=== PATIENT | female | born 1945 | race African-American/Black ===

== ENCOUNTER 2018-09-03 18:04 | Inpatient (IN) | payer MEDICARE, OTHER ==
--- NOTE | 2018-09-03 18:22 | PDOC ---
History of Present Illness - General Stated Complaint: WEAKNESS Time Seen by Provider: 09/03/18 18:21 History Source: Patient Exam Limitations: No Limitations - History of Present Illness Initial Comments: Zarina Rasmussen is a 73 yo F with a pmh of HTN, HLD, GERD, and bladder problems who presents to the ER BIBEMS with 3 days of left leg weakness. Patient states she has been shifting and walking to the left for the past 3 days as well. She also endorses occasional left shoulder weakness but nearly all of her symptoms are in her leg. What prompted her to come to the ER is that when she was driving today she states everyone was honking at her bc she was drifting over to the left. She then went to her doctor at [address] [place] [address] who sent her into the ER to be evaluated. She states she didn't understand why her leg has been weak so she incidentally checked her sugar at home yesterday and found that it was elevated at 200. She denies having a hx of diabetes. Patient denies having experienced any pain, numbness, tingling, chills, headache , neck pain, blurry vision, hx of strokes, dysuria, frequency, urgency, chest pain, SOB, difficulty breathing, abdominal pain, slurring her words, n/v/d/c. PCP: Michelle Valdes PSH: None reported Allergies: Amlodipine, benzapril Social Hx: Denies smoking, drinking, or other substance usage. tPA Exclusion checklist 3-4.5h - Time Elapsed Date last known well: 09/01/18 Time last known well: 09:00 Elaspsed time: 2 Day(s) and 11 Hour(s) and 49 Minutes - Thrombolytic Therapy Candidate Is patient eligible for thrombolytic therapy: No - Exclusion Criteria 3-4.5 hr SBP greater than 185 or DBP greater than 110mmHg despite tx: No Recent IC/spinal surgery,head trauma or stroke<3mos.: No Hx IC hemorrhage, IC neoplasm, AV malformation or aneurysm: No Active internal bleeding: No Blding diathesis(low plt ct, inc PTT,INR>1.7 or use of NOAC): No Symptoms suggest subarachnoid hemorrhage: No CT demonstrates multilobar infarct(>1/3 cerebral hemiphere): No Arterial puncture at noncompressible site in previous 7 days: No Blood glucose concentration less than 50mg/dL (2.7mmol/L): No - Relative Exclusion Criteria 3-4.5 hr Life expectancy <1 yr or severe co-morbid illness: No : No Patient/family refused: No Rapid improvement: No Stroke severity too mild: Yes Recent acute [place] (w/in previous 3 months): No Seizure at onset with postictal residual neuro impairments: No Major surgery or serious trauma w/in previous 14 days: No Recent GI or hemorrhage (w/in previous 21 days): No - Add'l Relative Exclusion 3-4.5 hr Age > 80: No Hx of both diabetes AND prior ischemic stroke: No Taking an oral anticoagulant regardless of INR: No NIHSS >25: No - Ineligibility reason(s) Reasons No tPA given: Outside of window - delayed arrival NIH Stroke Scale - Last Known Well Date/Time & Onset Date Last Known Well: 09/01/18 Time Last Known Well: 09:00 - Initial Evaluation Level of consciousness: Alert Ask patient the month and their age: Answers both correctly Ask patient to open & close eyes; make fist and let go: Obeys both correctly Best gaze (horizontal eye movement): Normal Visual field testing: No visual field loss Facial paresis (Show teeth/raise eyebrows/close eyes tight): Normal symmetrical movement Motor Function: Left Arm: Normal Motor Function: Right Arm: Normal (extends arm 90 (or 45) degrees for 10 seconds without drift Motor Function: Left Leg: Drift Motor Function: Right Leg: Normal (extends leg 30 degrees for 5 seconds without drift) Limb Ataxia: Present in one limb Sensory(Use pinprick test arms,legs,trunk,face/side to side): Normal Best language (Describe picture, name items, read sentences): No Aphasia Dysarthria (read several words): Normal articulation Extinction and Inattention: No abnormality - Total Score NIH Stroke Scale Score: 2 Past History - Past Medical History Allergies/Adverse Reactions: Allergies Allergy/AdvReac Type Severity Reaction Status Date / Time amlodipine besylate Allergy Verified 09/03/18 18:36 [From Lotrel] benazepril HCl [From Lotrel] Allergy Verified 09/03/18 18:36 Home Medications: Ambulatory Orders Albuterol Sulfate Inhaler - [Ventolin Hfa Inhaler -] 1 puff IH PRN 09/03/18 Amlodipine Besylate 5 mg PO HS 09/03/18 Atorvastatin Ca [Lipitor] 20 mg PO HS 09/03/18 Famotidine [Pepcid] 40 mg PO DAILY 09/03/18 Metoprolol Succinate 100 mg PO HS 09/03/18 HTN: Yes Hypercholesterolemia: Yes - Suicide/Smoking/Psychosocial Hx Smoking Status: No Smoking History: Never smoked Number of Cigarettes Smoked Daily: 0 Hx Alcohol Use: No Drug/Substance Use Hx: No Substance Use Type: None Review of Systems - Review of Systems Able to Perform ROS?: Yes Comments:: CONSTITUTIONAL: Absent: fever, chills, diaphoresis, generalized weakness, malaise, loss of appetite HEENT: Absent: rhinorrhea, nasal congestion, throat pain, throat swelling, difficulty swallowing, mouth swelling, ear pain, eye pain, visual Changes CARDIOVASCULAR: Absent: chest pain, syncope, palpitations, irregular heart rate, lightheadedness , peripheral edema RESPIRATORY: Absent: cough, shortness of breath, dyspnea with exertion, orthopnea, wheezing, stridor, hemoptysis GASTROINTESTINAL: Absent: abdominal pain, abdominal distension, nausea, vomiting, diarrhea, constipation, melena, hematochezia GENITOURINARY: Absent: dysuria, frequency, urgency, hesitancy, hematuria, flank pain, genital pain MUSCULOSKELETAL: Absent: myalgia, arthralgia, joint swelling SKIN: Absent: rash, itching, pallor HEMATOLOGIC/IMMUNOLOGIC: Absent: easy bleeding, easy bruising, lymphadenopathy, frequent infections ENDOCRINE: Absent: unexplained weight gain, unexplained weight loss, heat intolerance, cold intolerance NEUROLOGIC: Present: Focal weakness, unsteady gait Absent: headache, paresthesias, dizziness, seizure, mental status changes, bladder or bowel incontinence PSYCHIATRIC: Absent: anxiety, depression, suicidal or homicidal ideation, hallucinations. *Physical Exam - Physical Exam Comments: GENERAL: Well developed, well nourished. Awake and alert. No acute distress. HEENT: Normocephalic, atraumatic. PERRLA, EOMI. No conjunctival pallor. Sclera are non- icteric. Moist mucous membranes. Oropharynx is clear. NECK: Supple. Full ROM. No JVD. No lymphadenopathy. CARDIOVASCULAR: Regular rate and rhythm. No murmurs, rubs, or gallops. Distal pulses are 2+ and symmetric. PULMONARY: No evidence of respiratory distress. Lungs clear to auscultation bilaterally. No wheezing, rales or rhonchi. ABDOMINAL: Soft. Non-tender. Non-distended. No rebound or guarding. No organomegaly. Normoactive bowel sounds. MUSCULOSKELETAL Normal range of motion at all joints. No bony deformities or tenderness. No CVA tenderness. EXTREMITIES: No cyanosis. No clubbing. No edema. No calf tenderness. SKIN: Warm and dry. Normal capillary refill. No rashes. No jaundice. NEUROLOGICAL: Alert, awake, appropriate. Cranial nerves 2-12 intact. No deficits to light touch in face, upper extremities and lower extremities. No motor deficits in the in face and upper extremities. The left lower extremity has significant weakness compared to the right. Normal speech. Toes are down-going bilaterally. Gait is unsteady and patient drifts to the left. PSYCHIATRIC: Cooperative. Good eye contact. Appropriate mood and affect. ED Treatment Course - LABORATORY CBC & Chemistry Diagram: 09/03/18 19:00 09/03/18 19:00 - RADIOLOGY Radiograph Interpretation: CXR: Head CT: Cranial CT without contrast Clinical information: evaluate for TIA/CVA No intracranial hemorrhage is seen. There is no extra-axial fluid collection. In comparison to a prior CT study of 10/20/2011 interval development of a small infarct is noted within the anterior limb of left internal which is probably chronic. Note is again made of minimal bilateral frontoparietal subcortical white matter low-attenuation probably on the basis of subtle chronic microvascular ischemic changes. No obvious mass lesion is seen on noncontrast imaging. Involutional changes are noted with mild ventricular dilatation. A partly empty sella turcica is seen which is usually of no clinical significance. The calvarium appears intact. Impression: No definite CT evidence of acute intracranial pathology. In comparison to a 2012 CT study interval development of a small infarct is noted within the anterior limb of the left internal capsule which is probably chronic, less likely acute/subacute. Correlate clinically. Minimal bilateral frontoparietal subcortical chronic microvascular changes are again seen. Medical Decision Making - Medical Decision Making Zarina Rasmussen is a 73 yo F with a pmh of HTN, HLD, GERD, and bladder problems [facility]. Patient states she has been shifting and walking to the left for the past 3 days as well. She also endorses occasional left shoulder weakness but nearly all of her symptoms are in her leg. What prompted her to come to the ER is that when she was driving today she states everyone was honking at her bc she was drifting over to the left. She then went to her doctor at [address] [place] [address] who sent her into the ER to be evaluated. She states she didn't understand why her leg has been weak so she incidentally checked her sugar at home yesterday and found that it was elevated at 200. She denies having a hx of diabetes. Vital Signs Temp Pulse Resp BP Pulse Ox 99.3 F 69 18 153/72 100 09/03/18 18:05 09/03/18 18:05 09/03/18 18:05 09/03/18 18:05 09/03/18 18:05 MDM: 73 yo F with a pmh of HTN, HLD, GERD, and bladder problems presents to the ER with isolated left leg weakness for 3 days, elevated glucose, and an unsteady gait. This is most concerning for a stroke, likely a lacunar and purely motor stroke. She has the HTN risk factor and now that her glucose has been elevated it's possible she has an undiagnosed DM. Will start a stroke workup in the ER and then admit patient to the hospital. Plan: Labs, urine, ekg, cxr, head ct, Admit to stroke floor. EKG: NS rate of 69, narrow complexes, TWI in leads 3 and V2, No ST elevations greater than 1 mm, LVH. Labs: Mild elevation in BUN, LDL. Mild decrease in WBC. - Will hydrate patient Urine: CXR: Normal Head CT: No bleed or evidence of acute pathology. Full report above. Disposition: Admit to stroke floor. Neuro consult: Paging Dr. Goncalves. - Spoke with Dr. Goncalves - agrees with current plan. Recommends aspirin and MRI. - Aspirin given - Will admit hospital for further care and disposition. - Patient microblogged for admission. - Patient accepted to hospital for admission. *DC/Admit/Observation/Transfer Diagnosis at time of Disposition: Left leg weakness, Unsteady gait, Ataxia - Discharge Dispostion Condition at time of disposition: Stable Decision to Admit order: Yes - Referrals - Patient Instructions - Post Discharge Activity
[2018-09-03] MEDS ORDERED: SODIUM CHLORIDE 1,000 ML IV STA (18:49)
[2018-09-03 19:15] LABS: BASO % 0.9 % (0-2.0); EOS % 2.1 % (0-4.5); HEMATOCRIT 37.2 % (32.4-45.2); LYMPH % 48.6 % (8-40); MCH 29.1 pg (25.7-33.7); MCHC 32.2 g/dl (32.0-36.0); MEAN CELL VOLUME 90.1 fl (80-96); MONO % 8.6 % (3.8-10.2); NEUT % 39.8 % (42.8-82.8); PLATELET COUNT 179 K/MM3 (134-434); RBC 4.13 M/mm3 (3.60-5.2); RDW 12.9 % (11.6-15.6); WHITE BLOOD COUNT 3.8 K/mm3 (4.0-10.0)
[2018-09-03 19:51] LABS: ALBUMIN 4.2 g/dl (3.4-5.0); ALK PHOS 67 U/L (45-117); ANION GAP 4 MMOL/L (8-16); BILIRUBIN,TOTAL 0.4 mg/dL (0.2-1); BLOOD UREA NITROGEN 18.9 mg/dL (7-18); CALCIUM 9.5 mg/dL (8.5-10.1); CHLORIDE 107 mmol/L (98-107); CHOLESTEROL 181 mg/dL (50-200); CO2 30 mmol/L (21-32); CREATININE 1.1 mg/dL (0.55-1.3); GLUCOSE,RANDOM 90 mg/dL (74-106); POTASSIUM 4.1 mmol/L (3.5-5.1); SGOT/AST 20 U/L (15-37); SGPT/ALT 23 U/L (13-61); SODIUM 140 mmol/L (136-145); TOT PROT 8.1 g/dl (6.4-8.2); TRIGLYCERIDES 150 mg/dL (0-150)
[2018-09-03 20:03] LABS: URINE APPEARANCE CLEAR; URINE BILIRUBIN NEGATIVE (NEGATIVE); URINE COLOR YELLOW; URINE GLUCOSE (UA) NEGATIVE (NEGATIVE); URINE KETONE TRACE (NEGATIVE); URINE LEUK ESTERASE NEGATIVE (NEGATIVE); URINE NITRITE NEGATIVE (NEGATIVE); URINE PROTEIN TRACE (NEGATIVE)
[2018-09-03] MEDS ORDERED: ASPIRIN 325 MG TABLET PO ONE (20:04)
--- NOTE | 2018-09-03 20:04 | PDOC ---
Documentation entered by Lisa Smith SCRIBE, acting as scribe for Marti Rosenthal DO. Marti Rosenthal DO: This documentation has been prepared by the Luis bledsoe Xhesika, SCRIBE, under my direction and personally reviewed by me in its entirety. I confirm that the documentation accurately reflects all work, treatment, procedures, and medical decision making performed by me. Attending Attestation - Resident Resident Name: Carl Delaney - ED Attending Attestation I have performed the following: I have examined & evaluated the patient, The case was reviewed & discussed with the resident, I agree w/resident's findings & plan, Exceptions are as noted - HPI HPI: 09/03/18 19:12 The patient is a 73 year old female with a significant medical history of HTN, HLD, GERD, and bladder problems who present to the ED BIBEMS with 3 days of L leg weakness associated with L shoulder weakness. The patient states she has been drifting and walking to the left and today when she was driving everyone was honking at her because she was drifting over to the left. The patient states she checked her sugar yesterday and it was elevated at 200, however, she denies any history of diabetes. The patient denies numbness, tingling, speech impediment, chest pain, shortness of breath, headache and dizziness. Denies fever, chills, nausea, vomit, diarrhea and constipation. Denies dysuria, frequency, urgency and hematuria. Allergies: Amlodipine, benzapril PCP: Dr. Michelle Valdes - Physicial Exam PE: 09/03/18 20:08 GENERAL: Awake, alert, and fully oriented, in no acute distress HEAD: No signs of trauma EYES: PERRLA, EOMI, sclera anicteric, conjunctiva clear ENT: Auricles normal inspection, hearing grossly normal, nares patent, oropharynx clear without exudates. Moist mucosa NECK: Normal ROM, supple, no lymphadenopathy, JVD, or masses LUNGS: Breath sounds equal, clear to auscultation bilaterally. No wheezes, and no crackles HEART: Regular rate and rhythm, normal S1 and S2, no murmurs, rubs or gallops ABDOMEN: Soft, nontender, normoactive bowel sounds. No guarding, no rebound. No masses EXTREMITIES: Normal range of motion, no edema. No clubbing or cyanosis. No cords, erythema, or tenderness NEUROLOGICAL: (+) 3/5 LLE weakness. Sensation intact. Cranial nerves II through XII grossly intact. Normal speech SKIN: Warm, Dry, normal turgor, no rashes or lesions noted. - Medical Decision Making 09/03/18 19:58 I, Dr. Marti Rosenthal, DO, attest that this document has been prepared under my direction and personally reviewed by me in its entirety. I further attest, that it accurately reflects all work, treatment, procedures and medical decision -making performed by me. 09/03/18 19:58 a/p: 73yo female with hx of htn and hld with L leg weakness since saturday -noticed she was dragging her leg -noticed she had weakness in the leg -family saw her today and noticed the changes to her gait and her ambulation and brought her in for further eval -pt with LLE weakness on exam -concern for new cva since saturday -no tpa given delay in presentation -will send labs, will monitor and reassess -head ct, cxr PMD dr. Michelle Valdes 09/03/18 20:01 chronic infarct [facility] clear 09/03/18 20:03 pt with glucose >200 yesterday, but after dinner and ice cream labs reviewed pt will need neuro eval- will call Dr. Augustin 09/03/18 20:44 resident discussed the case with dr. augustin - agrees with asa therapy resident discussed the case with [facility] who accepts pt to service Heart Score/ECG Review - ECG Intrepretation Comment:: 09/03/18 20:45 sinus at 69, nl axis, lvh, nl interval, no acute st/t wave findings
[2018-09-03 20:18] LABS: INR 1.03 (0.83-1.09); PROTHROMBIN TIME (PATIENT) 12.2 SEC (9.7-13.0)
[2018-09-03] MEDS ORDERED: ASPIRIN 325 MG TABLET ONE (20:40)
--- NOTE | 2018-09-03 20:51 | PN ---
Teaching Attending Note Name of Resident: Russ De Santiago ATTENDING PHYSICIAN STATEMENT I saw and evaluated the patient. I reviewed the resident's note and discussed the case with the resident. I agree with the resident's findings and plan as documented. SUBJECTIVE: Patient is a 73 year old woman with a PMH of HTN, HLD, GERD, and bladder problems who present to the ER with 3 days of left leg weakness associated with left shoulder weakness. The patient states she has been drifting and walking to the left and today when she was driving everyone was honking at her because she was drifting over to the left. The patient states she checked her sugar yesterday and it was elevated at 200, however, she denies any history of diabetes mellitus. Recently had holter monitoring to evaluate "palpitations". Admits to poor adherence with medication regimen. The patient denies numbness, tingling, speech impediment, chest pain, shortness of breath, headache and dizziness. Denies fever, chills, nausea, vomit, diarrhea and constipation. Denies dysuria, frequency, urgency and hematuria. OBJECTIVE: Alert Vital Signs Period Temp Pulse Resp BP Sys/Michael Pulse Ox Last 24 Hr 99.3 F 69-70 18-20 153-155/72-99 98-100 HEENT: No Jaundice, eye redness or discharge, PERRLA, EOMI. Normocephalic, atraumatic. External ears are normal and hearing is grossly intact. No nasal discharge. Neck: Supple, nontender. No palpable adenopathy or thyromegaly. No JVD Chest: Good effort. Clear to auscultation and percussion. Heart: Regular. No S3, rub or murmur Abdomen: Not distended, soft, nontender and no HSM. No rebound or guarding. Normal bowel sounds. Ext: Peripheral pulses intact. No leg edema. Skin: Warm and dry. No petechiae, rash or ecchymosis. Neuro: Alert. Oriented x3. CN 2-12 grossly intact. Left side hemiparesis. Sensation grossly intact in all four extremities. Short unsteady gait; plantar reflexes are flexor. Psych: Appropriate mood and affect. Good insight. Home Medications Medication Instructions Recorded Albuterol Sulfate Inhaler - 1 puff IH PRN 09/03/18 [Ventolin Hfa Inhaler -] Amlodipine Besylate 5 mg PO HS 09/03/18 Atorvastatin Ca [Lipitor] 20 mg PO HS 09/03/18 Famotidine [Pepcid] 40 mg PO DAILY 09/03/18 Metoprolol Succinate 100 mg PO HS 09/03/18 Abnormal Lab Results 09/03/18 09/03/18 09/03/18 19:00 19:00 19:00 WBC 3.8 L Neutrophils % 39.8 L D Lymphocytes % 48.6 H D Anion Gap 4 L BUN 18.9 H Total LDL Cholesterol 104 H HDL Cholesterol 61 H Urine Ketones 09/03/18 19:47 WBC Neutrophils % Lymphocytes % Anion Gap BUN Total LDL Cholesterol HDL Cholesterol Urine Ketones Trace H ASSESSMENT AND PLAN: 1. Rule out CVA - NIHSS in the ER was 2. Noncontrast head CT scan showed "no definite CT evidence of acute intracranial pathology. In comparison to a 2012 CT study interval development of a small infarct is noted within the anterior limb of the left internal capsule which is probably chronic, less likely acute/ subacute. Minimal bilateral frontoparietal subcortical chronic microvascular changes are again seen." Patient is beyond the time window for tPA. EKG shows NSR, LVH and nonspecific ST-T wave changes. No acute pathology on CXR. Will admit to telemetry, get brain and C-spine MRI, carotid doppler, ECHO, speech and swallow evaluation, PT consult, Neurology consult and fasting lipids. Patient got Aspirin 325 mp PO in the ER and we will optimize statin therapy. 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 2. Obesity Counseled on the risks associated with obesity. Will provide patient all the necessary assistance, counseling and positive reinforcement to facilitate weight loss. Consult copy room technician. 3. Hypertension - Will practice permissive hypertension for now pending brain MRI result. Will restart suitable outpatient antihypertensive drugs when clinically appropriate. Revise regimen to ensure good BP control. Nonpharmacologic measures to control hypertension like weight loss, salt restriction and exercise discussed. 4. DVT prophylaxis - Lovenox 40 mg SQ q 24 hours. 5. Advance directives - Full code
--- NOTE | 2018-09-03 21:30 | HP ---
CHIEF COMPLAINT: PCP: Michelle Valdes HISTORY OF PRESENT ILLNESS: 73F with pmh of HTN, HLD, GERD, bladder incontinence presents to [facility] with complaint of Left-sided weakness x3d. States that has had a change in her gait, drifting to the left, having trouble picking up things with the Left hand. Grew concern today after she noticed her car drifting to the left while driving. Prior to onset of symptoms 3d prior, patient had episodes of palpitations. Denies numbness, decreased sensation, dizziness, HOOPER, CP, SOB. No hx of stroke, [place]. Denies DM. Denies h/o falls. Endorses compliance with HTN meds, but intermittently takes HLD, GERD meds. Stopped taking ?oxybutinin last week due to insurance coverage issues. Had a Holter monitor a few weeks prior but not aware of the results. Had echo in Sep 2017, EF~65% RVSP 21mmHg. At baseline, lives alone with family nearby, achieves ALDs independently, walks w/o assistive devices. Last colonscopy was 4ys prior, w/o notable findings. 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, new since 2011 (2) Neuro consulted - rec MRI brain, ASA (3) NIHSS 2 Recent Travel: PAST MEDICAL HISTORY: HTN, HLD, GERD, bladder incontinence PAST SURGICAL HISTORY: none Social History: Smoking: denies Alcohol: social Drugs: denies Family History: mother, and brothers with DM, HTN Allergies: amlodipine besylate [From Lotrel] Allergy (Verified 09/03/18 18:36) benazepril HCl [From Lotrel] Allergy (Verified 09/03/18 18:36) HOME MEDICATIONS: Home Medications Medication Instructions Recorded Albuterol Sulfate Inhaler - 1 puff IH PRN 09/03/18 [Ventolin Hfa Inhaler -] Amlodipine Besylate 5 mg PO HS 09/03/18 Atorvastatin Ca [Lipitor] 20 mg PO HS 09/03/18 Famotidine [Pepcid] 40 mg PO DAILY 09/03/18 Metoprolol Succinate 100 mg PO HS 09/03/18 REVIEW OF SYSTEMS CONSTITUTIONAL: Absent: fever, chills, diaphoresis, generalized weakness, malaise, loss of appetite, weight change HEENT: Absent: difficulty swallowing, visual changes CARDIOVASCULAR: palpitations Absent: chest pain, syncope, irregular heart rate, lightheadedness, peripheral edema RESPIRATORY: Absent: cough, shortness of breath, wheezing, stridor, hemoptysis GASTROINTESTINAL: Absent: abdominal pain, abdominal distension, nausea, vomiting, diarrhea, constipation, melena, hematochezia GENITOURINARY: urinary incontinence Absent: dysuria, frequency, urgency, hesitancy, hematuria, flank pain, genital pain MUSCULOSKELETAL: Absent: myalgia, arthralgia, joint swelling, back pain, neck pain HEMATOLOGIC/IMMUNOLOGIC: Absent: lymphadenopathy, frequent infections ENDOCRINE: Absent: unexplained weight gain, unexplained weight loss NEUROLOGIC: Left-sided UE and LE weakness, gait drifts to the Left Absent: headache, focal weakness or paresthesias, dizziness, seizure, mental status changes, bowel incontinence PSYCHIATRIC: Absent: anxiety, depression. PHYSICAL EXAMINATION Vital Signs - 24 hr 09/03/18 09/03/18 09/03/18 18:05 18:55 20:37 Temperature 99.3 F Pulse Rate 69 Pulse Rate [ 70 Radial] Respiratory 18 20 Rate Blood Pressure 153/72 Blood Pressure 155/99 [Left Arm] O2 Sat by Pulse 100 99 98 Oximetry (%) GENERAL: Awake, alert, and fully oriented, in no acute distress. HEAD: Normal with no signs of trauma. EYES: extraocular movements intact, sclera anicteric, conjunctiva clear. EARS, NOSE, THROAT: Ears normal, nares patent, oropharynx clear without exudates. Moist mucous membranes. NECK: Normal range of motion, supple without lymphadenopathy, JVD, or masses. LUNGS: Breath sounds equal, clear to auscultation bilaterally. No wheezes, and no crackles. No accessory muscle use. HEART: Regular rate and rhythm, normal S1 and S2 without murmur, rub or gallop. ABDOMEN: Soft, nontender, not distended, no guarding, no rebound, no masses. MUSCULOSKELETAL: Normal range of motion at all joints. No bony deformities or tenderness. No CVA tenderness. UPPER EXTREMITIES: 2+ pulses, warm, well-perfused. No cyanosis. No peripheral edema. LOWER EXTREMITIES: 2+ pulses, warm, well-perfused. No calf tenderness. No peripheral edema. NEUROLOGICAL: Cranial nerves II-XII intact. Normal speech. Left leg drifts down , ataxic on NIHSS. Left hand can bander operator 4/5. Left leg 3/5. Left foot with short shuffle. Gait drifts to Left. Colby clock with all numbers present. NIHSS ~3. PSYCHIATRIC: Cooperative. Good eye contact. Appropriate mood and affect. SKIN: Warm, dry, normal turgor, no rashes or lesions noted, normal capillary refill. Laboratory Results - last 24 hr 09/03/18 09/03/18 09/03/18 19:00 19:00 19:00 WBC 3.8 L RBC 4.13 Hgb 12.0 Hct 37.2 MCV 90.1 MCH 29.1 MCHC 32.2 RDW 12.9 Plt Count 179 D MPV 9.0 Absolute Neuts (auto) 1.5 Neutrophils % 39.8 L D Lymphocytes % 48.6 H D Monocytes % 8.6 D Eosinophils % 2.1 Basophils % 0.9 Nucleated RBC % 0 PT with INR INR Sodium 140 Potassium 4.1 Chloride 107 Carbon Dioxide 30 Anion Gap 4 L BUN 18.9 H Creatinine 1.1 Est GFR (CKD-EPI)AfAm 57.28 Est GFR (CKD-EPI)NonAf 49.42 Random Glucose 90 Calcium 9.5 Total Bilirubin 0.4 AST 20 ALT 23 Alkaline Phosphatase 67 Creatine Kinase 73 Troponin I < 0.02 Total Protein 8.1 Albumin 4.2 Triglycerides 150 Cholesterol 181 Total LDL Cholesterol 104 H HDL Cholesterol 61 H Urine Color Urine Appearance Urine pH Ur Specific [place] Urine Protein Urine Glucose (UA) Urine Ketones Urine Blood Urine Nitrite Urine Bilirubin Urine Urobilinogen Ur Leukocyte Esterase 09/03/18 09/03/18 19:00 19:47 WBC RBC Hgb Hct MCV MCH MCHC RDW Plt Count MPV Absolute Neuts (auto) Neutrophils % Lymphocytes % Monocytes % Eosinophils % Basophils % Nucleated RBC % PT with INR 12.20 INR 1.03 Sodium Potassium Chloride Carbon Dioxide Anion Gap BUN Creatinine Est GFR (CKD-EPI)AfAm Est GFR (CKD-EPI)NonAf Random Glucose Calcium Total Bilirubin AST ALT Alkaline Phosphatase Creatine Kinase Troponin I Total Protein Albumin Triglycerides Cholesterol Total LDL Cholesterol HDL Cholesterol Urine Color Yellow Urine Appearance Clear Urine pH 5.0 Ur Specific [place] 1.023 Urine Protein Trace Urine Glucose (UA) Negative Urine Ketones Trace H Urine Blood Negative Urine Nitrite Negative Urine Bilirubin Negative Urine Urobilinogen 1.0 Ur Leukocyte Esterase Negative CTH(09/03/18): -In comparison to a 2012 CT study interval development of a small infarct is noted within the anterior limb of the left internal capsule which is probably chronic, less likely acute/subacute. Correlate clinically. -Minimal bilateral frontoparietal subcortical chronic microvascular changes are again seen. ASSESSMENT/PLAN: 73F with pmh of HTN, HLD, GERD, bladder incontinence presenting with 3d of Left upper/lower extremity weakness. # Left-sided upper/lower extremity weakness -- r/o stroke vs cervical radiculopathy > CTH(09/03/18): probable chronic small infarct w/in anterior limb of Left internal capsule > NIHSS ~3 - Neuro consulted: rec MRI + ASA - admit to tele - fall precautions - fu MRI brain - fu MRI c-spine -- r/o cervical radiculopathy - fu cartoid duplex -- r/o carotid stenosis - fu fasting Lipid panel - Speech and Swallow consult - PT consult # HTN - permissive HTN # HLD - consider increasing home atorvastatin dosage - encourage medication compliance Russ De Santiago, DO PGY-1 Medicine, PM-Float [id number] 09/03/18 Visit type - Emergency Visit Emergency Visit: Yes ED Registration Date: 09/03/18 Care time: The patient presented to the Emergency Department on the above date and was hospitalized for further evaluation of their emergent condition. - New Patient This patient is new to me today: Yes Date on this admission: 09/04/18 - Critical Care Critical Care patient: No ATTENDING PHYSICIAN STATEMENT I saw and evaluated the patient. I reviewed the resident's note and discussed the case with the resident. I agree with the resident's findings and plan as documented. SUBJECTIVE: OBJECTIVE: ASSESSMENT AND PLAN:
[2018-09-03] MEDS: SODIUM CHLORIDE 1,000 ML IV SCH (22:09)
[2018-09-04 06:45] LABS: BASO % 0.8 % (0-2.0); EOS % 4.7 % (0-4.5); HEMATOCRIT 37.8 % (32.4-45.2); HEMOGLOBIN 12.2 GM/dL (10.7-15.3); LYMPH % 50.8 % (8-40); MCH 29.1 pg (25.7-33.7); MCHC 32.3 g/dl (32.0-36.0); MEAN CELL VOLUME 90.1 fl (80-96); MONO % 10.2 % (3.8-10.2); NEUT % 33.5 % (42.8-82.8); PLATELET COUNT 163 K/MM3 (134-434); RDW 12.9 % (11.6-15.6); WHITE BLOOD COUNT 2.8 K/mm3 (4.0-10.0)
[2018-09-04 07:16] LABS: ALBUMIN 3.6 g/dl (3.4-5.0); BILIRUBIN,TOTAL 0.7 mg/dL (0.2-1); BLOOD UREA NITROGEN 12.6 mg/dL (7-18); CALCIUM 8.9 mg/dL (8.5-10.1); CREATININE 0.9 mg/dL (0.55-1.3); MAGNESIUM 2.3 mg/dL (1.8-2.4); POTASSIUM 3.9 mmol/L (3.5-5.1); TOT PROT 7.2 g/dl (6.4-8.2)
--- NOTE | 2018-09-04 12:07 | CONSULT ---
Admitting History and Physical - Primary Care Physician PCP: Je Chan - Admission History of Present Illness: Per EMR- 73F with pmh of HTN, HLD, GERD, bladder incontinence presents to [facility]ED with complaint of Left-sided weakness x3d. States that has had a change in her gait, drifting to the left, having trouble picking up things with the Left hand. Grew concern today after she noticed her car drifting to the left while driving. Prior to onset of symptoms 3d prior, patient had episodes of palpitations. Denies numbness, decreased sensation, dizziness, HOOPER, CP, SOB. No hx of stroke, [place]. Denies DM. Denies h/o falls. Endorses compliance with HTN meds, but intermittently takes HLD, GERD meds. Stopped taking ?oxybutinin last week due to insurance coverage issues. Had a Holter monitor a few weeks prior but not aware of the results. Had echo in Sep 2017, EF~65% RVSP 21mmHg. At baseline, lives alone with family nearby, achieves ALDs independently, walks w/o assistive devices. Last colonscopy was 4ys prior, w/o notable findings. 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, new since 2011 (2) Neuro consulted - rec MRI brain, ASA Selected Entries 09/03/18 09/03/18 09/03/18 18:05 20:37 21:31 Temperature 99.3 F 98.8 F Blood Pressure 153/72 Blood Pressure 155/99 107/59 L [Left Arm] 09/04/18 09/04/18 06:20 10:00 Temperature 98.2 F Blood Pressure Blood Pressure 139/73 134/105 H [Left Arm] Laboratory Tests 09/03/18 09/04/18 19:00 05:45 WBC 3.8 L 2.8 L History Source: Patient, Medical Record Limitations to Obtaining History: No Limitations - Smoking History Smoking history: Never smoked Have you smoked in the past 12 months: No Aproximately how many cigarettes per day: 0 - Alcohol/Substance Use Hx Alcohol Use: No History - Admission Reason For Visit: STROKE - Diagnostics X-ray: Report Reviewed (neg) CT Scan: Report Reviewed (CT H - 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, new since 2011) MRI: Pending - General Mental Status: Alert and Oriented, Awake and Alert, Able to Follow Commands Attention: Intact Ability to Follow Directions: Excellent Head/Neck Control: WFL - Hearing Hearing: Functional Speech Evaluation - Communication Primary Language: [place] Communication: Yes: Within Normal Limits Oral Expression Ability: Yes: No Impairment - Speech Production Able to Make Needs Known: Yes: WNL Intelligibility: Yes: WNL - Speech Characteristics Voice Loudness: Normal Voice Pitch: Yes: Normal Voice Phonatory-based Quality: Yes: Normal Speech Pattern: Normal Speech Clarity: < 100% Nasal Resonance: Normal Articulation: Yes: Precise - Language/Auditory Comprehension Follows: Yes: 2 Stage Simple Commands - Language/Verbal Expression Able to Respond to Simple Queries: Yes: WNL Able to Communicate Wants and Needs: Yes: WNL Functional Communication Status: Yes: WNL Attention: Yes: Intact - Swallow Evaluation/Bedside Assessment Current Nutritional Intake: Regular, Thin Liquids Oral Secretions: Yes: WFL Dentition: Yes: Dental Appliance Upper, Dental Appliance Lower Facial Symmetry on Retraction: Symmetrical Facial Movement: Controlled Against Resistance Opening: Normal Against Resistance Closing: Normal Pucker Lips: Normal Smile: Normal Lingual Movement: Normal, Symmetric Lingual Speed of Movement: Normal Lingual Movement Strgth Against Opposition: Normal Lingual Movement Characteristics: Normal Velopharyngeal Movement: Normal Laryngeal Elevation: WFL Laryngeal Movement: Able to Palpate Rate of Intake: WFL Bolus Size: WFL Labial Seal: WFL Chewing: WFL Oral Prep Time: WFL A-P Transit: WFL Pocketing: None Timing of Swallow: WFL Coughing/Throat Clear: No Change in Voice: No Recommendations - Speech Evaluation, Impression/Plan Impression: Sp/SW/Languge/Cognition intact. Pt reports LLE weakness. - Dysphagia Impressions/Plan Swallowing Skills: WF Dysphagia Impressions: No Impairment *Silent aspiration: cannot be R/O at bedside - Recommendations Diet Consistency: Regular Medication Administration: Whole with water Liquids: Thin Liquids
[2018-09-04] MEDS ORDERED: ALBUTEROL SO4 8 GM HFA INHALER IH PRN (13:15)
--- NOTE | 2018-09-04 13:48 | ECHO ---
Name: NANCY WILL Exam:Adult Echocardiogram Study Date: 09/04/2018 09:23 AM Age: 73 yrs Reason For Study: r/o cva/tia/stroke Height: 65 in Weight: 180 lb BSA: 1.9 m2 MMode/2D Measurements & Calculations IVSd: 1.0 cm Ao root diam: 3.2 cm LVIDd: 5.0 cm LA dimension: 3.3 cm LVIDs: 3.7 cm LVPWd: 0.98 cm LVPWs: 1.5 cm EDV(Teich): 116.2 ml ESV(Teich): 56.9 ml LVOT diam: 2.1 cm Doppler Measurements & Calculations MV E max jefry: 52.3 cm/sec Ao V2 max: 153.0 cm/sec MV A max jefry: 77.0 cm/sec Ao max P.4 mmHg MV E/A: 0.68 Ao V2 mean: 97.5 cm/sec MV dec time: 0.18 sec Ao mean P.6 mmHg Ao V2 VTI: 31.3 cm LOLIS(I,D): 2.4 cm2 AI P1/2t: 772.4 msec LOLIS(V,D): 2.4 cm2 AI max jefry: 425.9 cm/sec LV V1 max P.1 mmHg AI max P.6 mmHg LV V1 mean P.2 mmHg AI dec slope: 161.5 cm/sec2 LV V1 max: 101.7 cm/sec LV V1 mean: 68.4 cm/sec LV V1 VTI: 20.7 cm MR max jefry: 544.6 cm/sec SV(LVOT): 75.0 ml MR max P.6 mmHg TR max jefry: 216.5 cm/sec PA V2 max: 96.6 cm/sec TR max P.8 mmHg PA max P.7 mmHg Med Peak E' Jefry: 3.7 cm/sec Med E/e': 14.0 Lat Peak E' Jefry: 8.4 cm/sec Lat E/e': 6.2 Procedure A complete two-dimensional transthoracic echocardiogram was performed (2D, M-mode, Doppler and color flow Doppler). Left Ventricle The left ventricular size, thickness and function are normal. The left ventricular ejection fraction is normal. Ejection Fraction = 60-65%. The left ventricular wall motion is normal. Right Ventricle The right ventricle is normal in size and function. Atria Normal left and right atrial size and function. Mitral Valve There is mild mitral regurgitation. Tricuspid Valve There is trace tricuspid regurgitation. Right ventricular systolic pressure is normal. Aortic Valve The aortic valve is trileaflet. No hemodynamically significant valvular aortic stenosis. Trace aortic regurgitation. Pulmonic Valve There is no pulmonic valvular regurgitation. Great Vessels The aortic root is normal size. Pericardium/Pleura There is no pericardial effusion. Interpretation Summary The left ventricular size, thickness and function are normal The right ventricle is normal in size and function. There is mild mitral regurgitation. There is trace tricuspid regurgitation. Trace aortic regurgitation. MD Campos Carvajal 09/04/2018 01:47 PM
[2018-09-04 14:04] VITALS: BMI 31.4
--- NOTE | 2018-09-04 15:21 | EKG ---
Test Reason : Blood Pressure : / mmHG Vent. Rate : 069 BPM Atrial Rate : 069 BPM P-R Int : 134 ms QRS Dur : 072 ms QT Int : 390 ms P-R-T Axes : 037 -03 008 degrees QTc Int : 417 ms NORMAL SINUS RHYTHM MINIMAL VOLTAGE CRITERIA FOR LVH, MAY BE NORMAL VARIANT NONSPECIFIC ST AND T WAVE ABNORMALITY ABNORMAL ECG WHEN COMPARED WITH ECG OF 03-SEP-2018 18:56, PREVIOUS ECG HAS UNDETERMINED RHYTHM, NEEDS REVIEW Confirmed by CLARIBEL CARRERO MD ([id number]) on 09/04/2018 3:21:18 PM Referred By: Confirmed By:CLARIBEL CARRERO MD
--- NOTE | 2018-09-04 15:41 | HP ---
Admitting History and Physical - Smoking History Smoking history: Never smoked Have you smoked in the past 12 months: No Aproximately how many cigarettes per day: 0 - Alcohol/Substance Use Hx Alcohol Use: No Home Medications - Allergies Allergies/Adverse Reactions: Allergies Allergy/AdvReac Type Severity Reaction Status Date / Time amlodipine besylate Allergy Verified 09/03/18 18:36 [From Lotrel] benazepril HCl [From Lotrel] Allergy Verified 09/03/18 18:36 - Home Medications Home Medications: Ambulatory Orders Albuterol Sulfate Inhaler - [Ventolin Hfa Inhaler -] 1 puff IH PRN 09/03/18 Amlodipine Besylate 5 mg PO HS 09/03/18 Atorvastatin Ca [Lipitor] 20 mg PO HS 09/03/18 Famotidine [Pepcid] 40 mg PO DAILY 09/03/18 Metoprolol Succinate 100 mg PO HS 09/03/18 Physical Examination Vital Signs: Vital Signs Temperature 98 F 09/04/18 12:59 Pulse Rate 74 09/04/18 12:59 Respiratory Rate 18 09/04/18 12:59 Blood Pressure 166/86 09/04/18 12:59 O2 Sat by Pulse Oximetry (%) 97 09/04/18 13:20 Labs: CBC, BMP 09/04/18 05:45 09/04/18 05:45 Assessment/Plan cc Left sided hemiparesis since August HPI 73 year old female history of HTN,HLD, Bladder incontinence. Patient came to hospital for left sided weakness for three days. Patient could not walk and have difficulty picking up stuff by left hand. Patient feels she is improving. 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 She was taking atorvastatin 20 mg at home and no aspirin Patient denies any focal neurological symptoms. PAST MEDICAL HISTORY: HTN, HLD, GERD, bladder incontinence PAST SURGICAL HISTORY: none Social History: Smoking: denies Alcohol: social Drugs: denies Family History: mother, and brothers with DM, HTN Allergies: amlodipine besylate [From Lotrel] Allergy (Verified 09/03/18 18:36) benazepril HCl [From Lotrel] Allergy (Verified 09/03/18 18:36) HOME MEDICATIONS: Home Medications Medication Instructions Recorded Albuterol Sulfate Inhaler - 1 puff IH PRN 09/03/18 [Ventolin Hfa Inhaler -] Amlodipine Besylate 5 mg PO HS 09/03/18 Atorvastatin Ca [Lipitor] 20 mg PO HS 09/03/18 Famotidine [Pepcid] 40 mg PO DAILY 09/03/18 Metoprolol Succinate 100 mg PO HS 09/03/18 ROS , FH reviewed in chart NEUROLOGICAL EXAMINATION Alert oriented x 3, speech is normal, no neck stiffness eomi, pupils reactive, no face asymmetry Left upper extremity is grade 4 and left lower extremity is grade 3 ct head showd there is old left internal capsule ischemic lesion carotid ultrasound unremarkable Assessment/Plan 1. Left sided hemiparesis, secondary to right mca lacunar stroke. carotid ultrasound is normal Plan : agree with mri of brain - speech therapy appreciated, PT, DVT prophylaxis - add aspirin , and increase lipitor to 40 mg once a day Stroke Education Thaning you so much Mauricio Nassar MD
--- NOTE | 2018-09-04 15:44 | PN ---
Progress Note, Physician Chief Complaint: Left sided weakness HTN History of Present Illness: Previous notes and events reviewed awake and alert NAD complain of left sided weakness denies chest pain or SOB pending brain MRI - Current Medication List Current Medications: Active Medications Albuterol Sulfate (Ventolin Hfa Inhaler -) 2 puff IH Q4H PRN PRN Reason: SHORTNESS OF BREATH Amlodipine Besylate (Norvasc -) 5 mg PO HS TAMMIE Atorvastatin Calcium (Lipitor -) 20 mg PO HS TAMMIE Sodium Chloride (Normal Saline -) 1,000 mls @ 42 mls/hr IV ASDIR TAMMIE Last Admin: 09/03/18 22:09 Dose: 42 mls/hr Metoprolol Succinate (Toprol Xl -) 100 mg PO HS TAMMIE - Objective Vital Signs: Vital Signs Temperature 98 F 09/04/18 12:59 Pulse Rate 74 09/04/18 12:59 Respiratory Rate 18 09/04/18 12:59 Blood Pressure 166/86 09/04/18 12:59 O2 Sat by Pulse Oximetry (%) 97 09/04/18 13:20 Constitutional: Yes: No Distress, Calm Eyes: Yes: Conjunctiva Clear HENT: Yes: Atraumatic Cardiovascular: Yes: Regular Rate and Rhythm Respiratory: Yes: Regular, CTA Bilaterally Gastrointestinal: Yes: Normal Bowel Sounds, Soft Musculoskeletal: Yes: Muscle Weakness Extremities: Yes: WNL Edema: No Neurological: Yes: Alert, Weakness (L sided weakness) Psychiatric: Yes: Alert, Oriented Labs: CBC, BMP 09/04/18 05:45 09/04/18 05:45 INR, PTT INR 1.03 (0.83-1.09) 09/03/18 19:00 - ....Imaging Cat Scan: Report Reviewed Problem List - Problems (1) HTN (hypertension) Assessment/Plan: -Norvasc, Metoprolol -low Na diet -cardiology consult Code(s): I10 - ESSENTIAL (PRIMARY) HYPERTENSION (2) Left leg weakness Assessment/Plan: -Neurology on board -possibly 2/2 to CVA? -Brain CT Scan shows no definite evidence of acute intracranial pathology -pending brain MRI -PT -fall precautions -Carotid doppler shows mild to moderate atherosclerotic disease -aspirin and atorvastatin -PHYSICAL THERAPIST CLINIC DIRECTOR eval -Echo shows EF 60-65% -neuro checks Code(s): R29.898 - OTH SYMPTOMS AND SIGNS INVOLVING THE MUSCULOSKELETAL SYSTEM (3) Unsteady gait Assessment/Plan: -PT -fall precautions -Cervical spine MRI ordered Code(s): R26.81 - UNSTEADINESS ON FEET Assessment/Plan see problem list
[2018-09-04] MEDS: ASPIRIN 81 MG CHEWABLE TABLETS PO SCH (17:28)
[2018-09-04] MEDS: ATORVASTATIN CA 40 MG TABLET (FP) PO SCH (21:58)
[2018-09-04] MEDS: SODIUM CHLORIDE 1,000 ML IV SCH (21:58)
[2018-09-04] MEDS: amLODIPine BESYLATE 5 MG TABLET (FP) PO SCH (21:58)
[2018-09-04] MEDS ORDERED: ATORVASTATIN CA 20 MG TABLET (FP) PO SCH (22:00)
[2018-09-05 07:47] LABS: HEMATOCRIT 37.7 % (32.4-45.2); HEMOGLOBIN 12.4 GM/dL (10.7-15.3); MCH 29.5 pg (25.7-33.7); MCHC 32.9 g/dl (32.0-36.0); MEAN CELL VOLUME 89.6 fl (80-96); MEAN PLT VOLUME 8.8 fl (7.5-11.1); RBC 4.21 M/mm3 (3.60-5.2); RDW 13.1 % (11.6-15.6); WHITE BLOOD COUNT 3.1 K/mm3 (4.0-10.0)
[2018-09-05 07:55] LABS: ALBUMIN 3.7 g/dl (3.4-5.0); BILIRUBIN,TOTAL 0.9 mg/dL (0.2-1); BLOOD UREA NITROGEN 13.7 mg/dL (7-18); CALCIUM 8.8 mg/dL (8.5-10.1); TOT PROT 7.8 g/dl (6.4-8.2)
[2018-09-05 08:29] LABS: PLATELET COUNT 176 K/MM3 (134-434)
[2018-09-05] MEDS: ASPIRIN 81 MG CHEWABLE TABLETS PO SCH (09:28)
--- NOTE | 2018-09-05 11:27 | PN ---
Progress Note, Physician Chief Complaint: Left sided weakness HTN History of Present Illness: Seen by neurology left hemiperesis Family at bedside - Current Medication List Current Medications: Active Medications Albuterol Sulfate (Ventolin Hfa Inhaler -) 2 puff IH Q4H PRN PRN Reason: SHORTNESS OF BREATH Amlodipine Besylate (Norvasc -) 5 mg PO [facility] Last Admin: 09/04/18 21:58 Dose: 5 mg Aspirin (Asa -) 81 mg PO DAILY [facility] Last Admin: 09/05/18 09:28 Dose: 81 mg Atorvastatin Calcium (Lipitor -) 40 mg PO [facility] Last Admin: 09/04/18 21:58 Dose: 40 mg Sodium Chloride (Normal Saline -) 1,000 mls @ 42 mls/hr IV ASDIR [facility] Last Admin: 09/04/18 21:58 Dose: Not Given Metoprolol Succinate (Toprol Xl -) 100 mg PO [facility] Last Admin: 09/04/18 21:58 Dose: 100 mg - Objective Vital Signs: Vital Signs Temperature 98.4 F 09/05/18 09:34 Pulse Rate 69 09/05/18 09:34 Respiratory Rate 16 09/05/18 09:34 Blood Pressure 144/69 09/05/18 09:34 O2 Sat by Pulse Oximetry (%) 98 09/04/18 21:00 Constitutional: Yes: Well Nourished, No Distress, Calm, Obese Cardiovascular: Yes: Regular Rate and Rhythm Respiratory: Yes: Regular Gastrointestinal: Yes: WNL Genitourinary: Yes: WNL Musculoskeletal: Yes: Muscle Weakness, Other (LUE+3,LLE+4) Extremities: Yes: WNL Edema: No Peripheral Pulses WNL: Yes Neurological: Yes: Alert, Oriented Psychiatric: Yes: Alert, Oriented Labs: CBC, BMP 09/05/18 06:53 09/05/18 06:53 INR, PTT INR 1.03 (0.83-1.09) 09/03/18 19:00 Assessment/Plan (1) HTN (hypertension) Assessment/Plan: -Norvasc, Metoprolol -low Na diet -cardiology consult Code(s): I10 - ESSENTIAL (PRIMARY) HYPERTENSION (2) Left leg weakness Assessment/Plan: -Neurology on board -/ to CVA -Brain CT Scan shows no definite evidence of acute intracranial pathology -MRI brain showed :Acute nonhemorrhagic small infarcts deep in the right periventricular white matter. There are multiple foci of chronic small vessel infarction in the periventricular white matter. -PT -fall precautions -Carotid doppler shows mild to moderate atherosclerotic disease -aspirin added -atorvastatin increased to 40 mg po HS -CRUSHER SCREEN REPAIRER eval -Echo shows EF 60-65% -neuro checks Code(s): R29.898 - OTH SYMPTOMS AND SIGNS INVOLVING THE MUSCULOSKELETAL SYSTEM (3) Unsteady gait Assessment/Plan: -PT -fall precautions -D/C to SNF Code(s): R26.81 - UNSTEADINESS ON FEET
--- NOTE | 2018-09-05 11:32 | DS ---
Physical Examination Vital Signs: Vital Signs Temperature 98.4 F 09/05/18 09:34 Pulse Rate 69 09/05/18 09:34 Respiratory Rate 16 09/05/18 09:34 Blood Pressure 144/69 09/05/18 09:34 O2 Sat by Pulse Oximetry (%) 98 09/04/18 21:00 Findings/Remarks: 73F with pmh of HTN, HLD, GERD, bladder incontinence presents to [facility] with complaint of Left-sided weakness x3d. States that has had a change in her gait, drifting to the left, having trouble picking up things with the Left hand. Grew concern today after she noticed her car drifting to the left while driving. Prior to onset of symptoms 3d prior, patient had episodes of palpitations. Denies numbness, decreased sensation, dizziness, HO[place], CP, SOB. No hx of stroke, [place]. Denies DM. Denies h/o falls. Endorses compliance with HTN meds, but intermittently takes HLD, GERD meds. Stopped taking ?oxybutinin last week due to insurance coverage issues. Had a Holter monitor a few weeks prior but not aware of the results. Had echo in Sep 2017, EF~65% RVSP 21mmHg. At baseline, lives alone with family nearby, achieves ALDs independently, walks w/o assistive devices. Last colonscopy was 4ys prior, w/o notable findings. Constitutional: Yes: Well Nourished, No Distress, Calm, Obese Cardiovascular: Yes: Regular Rate and Rhythm Respiratory: Yes: Regular Gastrointestinal: Yes: Normal Bowel Sounds, Soft Renal/: Yes: WNL Musculoskeletal: Yes: Muscle Weakness Extremities: Yes: WNL Edema: No Peripheral Pulses WNL: Yes Neurological: Yes: Alert, Oriented Psychiatric: Yes: Alert, Oriented Labs: CBC, BMP 09/05/18 06:53 09/05/18 06:53 Discharge Summary Reason For Visit: STROKE Current Active Problems Ataxia (Acute) HTN (hypertension) (Acute) Left leg weakness (Acute) Unsteady gait (Acute) Hospital Course: Laboratory Last Values WBC 3.1 K/mm3 (4.0-10.0) L 09/05/18 06:53 RBC 4.21 M/mm3 (3.60-5.2) 09/05/18 06:53 Hgb 12.4 GM/dL (10.7-15.3) 09/05/18 06:53 Hct 37.7 % (32.4-45.2) 09/05/18 06:53 MCV 89.6 fl (80-96) 09/05/18 06:53 MCH 29.5 pg (25.7-33.7) 09/05/18 06:53 MCHC 32.9 g/dl (32.0-36.0) 09/05/18 06:53 RDW 13.1 % (11.6-15.6) 09/05/18 06:53 Plt Count 176 K/MM3 (134-434) 09/05/18 06:53 MPV 8.8 fl (7.5-11.1) 09/05/18 06:53 Absolute Neuts (auto) 0.9 K/mm3 (1.5-8.0) L 09/04/18 05:45 Neutrophils % 33.5 % (42.8-82.8) L 09/04/18 05:45 Lymphocytes % 50.8 % (8-40) H 09/04/18 05:45 Monocytes % 10.2 % (3.8-10.2) 09/04/18 05:45 Eosinophils % 4.7 % (0-4.5) H D 09/04/18 05:45 Basophils % 0.8 % (0-2.0) 09/04/18 05:45 Nucleated RBC % 0 % (0-0) 09/04/18 05:45 PT with INR 12.20 SEC (9.7-13.0) 09/03/18 19:00 INR 1.03 (0.83-1.09) 09/03/18 19:00 Sodium 142 mmol/L (136-145) 09/05/18 06:53 Potassium 4.0 mmol/L (3.5-5.1) 09/05/18 06:53 Chloride 108 mmol/L (98-107) H 09/05/18 06:53 Carbon Dioxide 29 mmol/L (21-32) 09/05/18 06:53 Anion Gap 4 MMOL/L (8-16) L 09/05/18 06:53 BUN 13.7 mg/dL (7-18) 09/05/18 06:53 Creatinine 1.0 mg/dL (0.55-1.3) 09/05/18 06:53 Est GFR (CKD-EPI)AfAm 64.27 09/05/18 06:53 Est GFR (CKD-EPI)NonAf 55.45 09/05/18 06:53 Random Glucose 101 mg/dL (74-106) 09/05/18 06:53 Hemoglobin A1c % 5.4 % (4.2-6.3) 09/04/18 05:45 Calcium 8.8 mg/dL (8.5-10.1) 09/05/18 06:53 Magnesium 2.3 mg/dL (1.8-2.4) 09/04/18 05:45 Total Bilirubin 0.9 mg/dL (0.2-1) 09/05/18 06:53 AST 23 U/L (15-37) 09/05/18 06:53 ALT 23 U/L (13-61) 09/05/18 06:53 Alkaline Phosphatase 66 U/L (45-117) 09/05/18 06:53 Creatine Kinase 73 U/L (26-192) 09/03/18 19:00 Troponin I < 0.02 ng/ml (0.00-0.05) 09/03/18 19:00 Total Protein 7.8 g/dl (6.4-8.2) 09/05/18 06:53 Albumin 3.7 g/dl (3.4-5.0) 09/05/18 06:53 Triglycerides 104 mg/dL (0-150) 09/04/18 05:45 Cholesterol 164 mg/dL (50-200) 09/04/18 05:45 Total LDL Cholesterol 95 mg/dL (5-100) 09/04/18 05:45 HDL Cholesterol 58 mg/dL (40-60) 09/04/18 05:45 TSH 3.27 uIU/ml (0.358-3.74) 09/04/18 05:45 Urine Color Yellow 09/03/18 19:47 Urine Appearance Clear 09/03/18 19:47 Urine pH 5.0 (5.0-8.0) 09/03/18 19:47 Ur Specific [place] 1.023 (1.010-1.035) 09/03/18 19:47 Urine Protein Trace (NEGATIVE) 09/03/18 19:47 Urine Glucose (UA) Negative (NEGATIVE) 09/03/18 19:47 Urine Ketones Trace (NEGATIVE) H 09/03/18 19:47 Urine Blood Negative (NEGATIVE) 09/03/18 19:47 Urine Nitrite Negative (NEGATIVE) 09/03/18 19:47 Urine Bilirubin Negative (NEGATIVE) 09/03/18 19:47 Urine Urobilinogen 1.0 mg/dL (0.2-1.0) 09/03/18 19:47 Ur Leukocyte Esterase Negative (NEGATIVE) 09/03/18 19:47 Blood Type A POSITIVE 09/04/18 14:45 Antibody Screen Negative 09/04/18 10:00 Vital Signs Temp 98.4 F 09/05/18 09:34 Pulse 69 09/05/18 09:34 Resp 16 09/05/18 09:34 BP 144/69 09/05/18 09:34 Pulse Ox 98 09/04/18 21:00 Intake & Output 09/04/18 09/04/18 09/05/18 11:59 23:59 11:59 Intake Total 324 700 Output Total 450 Balance 324 250 Weight 85.548 kg Intake: IV 84 500 Normal Saline - 1,000 ml 84 500 @ 42 mls/hr IV [facility] Rx#:[id number] Oral 240 200 Output: Urine 450 Void 450 Other: Voiding Method Toilet Toilet # Unmeasured Voids Void 2 2 Bowel Movement No Height 5 ft 5 in Body Mass Index (BMI) 31.4 Weight Measurement Method Standing Scale Condition: Stable - Instructions Diet, Activity, Other Instructions: Low sodium diet Disposition: TRANSFER ACUTE CARE/OTHER HOSP - Home Medications Comprehensive Discharge Medication List: Ambulatory Orders Albuterol Sulfate Inhaler - [Ventolin HFA Inhaler -] 1 puff IH PRN 09/03/18 Amlodipine Besylate 5 mg PO HS 09/03/18 Famotidine [Pepcid] 40 mg PO DAILY 09/03/18 Metoprolol Succinate 100 mg PO HS 09/03/18 Aspirin [ASA -] 81 mg PO DAILY tab.chew 09/05/18 Atorvastatin Ca [Lipitor] 40 mg PO HS tablet 09/05/18
--- NOTE | 2018-09-05 14:21 | CON.CARD ---
Consult Consult Specialty:: Cardiology Referred by:: Aayush Aceves Reason for Consultation:: CVA - History of Present Illness Chief Complaint: left sided weakness History of Present Illness: 73F with pmh of HTN, HLD, and gerd presents with left sided weakness for 3 days. Found to have acute CVA on MRI brain. Denies any history of chest pain, sob, or palpitations. No pnd, orthopnea, or edema. No syncope or near syncope. - History Source History Provided By: Patient, Medical Record - Alcohol/Substance Use Hx Alcohol Use: No - Smoking History Smoking history: Never smoked Have you smoked in the past 12 months: No Aproximately how many cigarettes per day: 0 Home Medications - Allergies Allergies/Adverse Reactions: Allergies Allergy/AdvReac Type Severity Reaction Status Date / Time amlodipine besylate Allergy Verified 09/03/18 18:36 [From Lotrel] benazepril HCl [From Lotrel] Allergy Verified 09/03/18 18:36 - Home Medications Home Medications: Ambulatory Orders Albuterol Sulfate Inhaler - [Ventolin HFA Inhaler -] 1 puff IH PRN 09/03/18 Amlodipine Besylate 5 mg PO HS 09/03/18 Famotidine [Pepcid] 40 mg PO DAILY 09/03/18 Metoprolol Succinate 100 mg PO HS 09/03/18 Aspirin [ASA -] 81 mg PO DAILY tab.chew 09/05/18 Atorvastatin Ca [Lipitor] 40 mg PO HS tablet 09/05/18 Vital Signs: Vital Signs Temperature 98.4 F 09/05/18 09:34 Pulse Rate 69 09/05/18 09:34 Respiratory Rate 16 09/05/18 09:34 Blood Pressure 144/69 09/05/18 09:34 O2 Sat by Pulse Oximetry (%) 98 09/04/18 21:00 Constitutional: Yes: No Distress Neck: Yes: Supple Respiratory: Yes: CTA Bilaterally Gastrointestinal: Yes: Soft Cardiovascular: Yes: Regular Rate and Rhythm JVD: No Carotid Bruit: No PMI: Non-Displaced Heart Sounds: Yes: S1, S2 Murmur: No: Systolic Murmur Edema: No (L leg weakness) - Other Data Labs, Other Data: CBC, BMP 09/05/18 06:53 09/05/18 06:53 INR, PTT INR 1.03 (0.83-1.09) 07/17/19 19:00 Imaging - Results EKG: Image Reviewed Assessment/Plan 73F with pmh of HTN, HLD, and gerd presents with left sided weakness for 3 days. Found to have acute CVA on MRI brain. 1) CVA -aspirin/statin/bp control Restarted on home amlodipine and metoprolol -Statin increased -Echocardiogram normal LVEF and no significant valve disease -Carotid duplex with no stenosis/but atherosclerosis noted -Tele sinus rhythm -Would recommend [facility]iary event monitor as an outpatient. Please give appt with Dr. Abreu as an outpatient. Will sign off.
--- NOTE | 2018-09-05 17:16 | PN ---
Progress Note (short form) - Note Progress Note: 73 year old female history of HTN,HLD, Bladder incontinence. Patient came to hospital for left sided weakness for three days. Patient could not walk and have difficulty picking up stuff by left hand. Patient feels she is improving. 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 She was taking atorvastatin 20 mg at home and no aspirin Pat NEUROLOGICAL EXAMINATION Alert oriented x 3, speech is normal, no neck stiffness eomi, pupils reactive, no face asymmetry Left upper extremity is grade 4 and left lower extremity is grade4 ct head showd there is old left internal capsule ischemic lesion ( incidental) carotid ultrasound unremarkable mri of brain showed right small lacunar stroke Assessment/Plan 1. Left sided hemiparesis, secondary to right mca lacunar stroke. carotid ultrasound is normal Plan : - speech therapy appreciated, PT, DVT prophylaxis - continue aspirin , and increase lipitor to 40 mg once a day Patient is going to rehab tomorrow Thaning you so much Mauricio Nassar MD
[2018-09-05] MEDS: amLODIPine BESYLATE 5 MG TABLET (FP) PO SCH (21:01)
[2018-09-05] MEDS: ATORVASTATIN CA 40 MG TABLET (FP) PO SCH (21:01)
[2018-09-06] MEDS: ASPIRIN 81 MG CHEWABLE TABLETS PO SCH (09:50)
[2018-09-06 09:55] VITALS: BP 131/79; PULSE 74; TEMP 98.6
--- NOTE | 2018-09-06 11:53 | PN ---
Progress Note (short form) - Note Progress Note: DISCHARGE TO [facility] PAPERWORK COMPLETE COMFORTABLE NO DISTRESS
[2018-09-06 21:07] LABS: HEP A AB, IGM Negative (Negative); HEP B CORE AB, TOT Negative (Negative)
== END 2018-09-06 12:16 | DRG 65 ==
LOC: JER 18:04 → JERBED 19:57 → J4S 09-04 13:10
PROVIDERS: ADMIT Internal Medicine; ATTEND Family Medicine
DX: I63.9 Cerebral infarction, unspecified (principal); I69.354 Hemiplegia and hemiparesis following cerebral infarction affecting left non-dominant side; E78.5 Hyperlipidemia, unspecified; I10 Essential (primary) hypertension; K21.9 Gastro-esophageal reflux disease without esophagitis; R27.0 Ataxia, unspecified; E66.8 Other obesity; Z68.31 Body mass index [BMI] 31.0-31.9, adult; R32 Unspecified urinary incontinence; M54.12 Radiculopathy, cervical region; R29.702 NIHSS score 2; R26.81 Unsteadiness on feet; E11.9 Type 2 diabetes mellitus without complications
CPT/HCPCS: 36415; 70450-TC; 70551-TC; 71045-TC-FY; 80053; 80061; 81003; 82465; 82550; 83036; 83718; 83721; 83735; 84443; 84478; 84484; 85025; 85027; 85610; 86704; 86706; 86707; 86708; 86709; 86803; 86850; 86900; 86901; 87340; 93005; 93010; 93306-TC; 93880-TC; 97116-GP; 97161-GP; 99285-25; J7030

== ENCOUNTER 2020-05-20 10:22 | Emergency (ER) | payer OTHER ==
[2020-05-20 10:28] VITALS: BMI 29.9
[2020-05-20 11:59] LABS: BASO % 1.1 % (0-2.0); EOS % 3.7 % (0-4.5); HEMATOCRIT 36.4 % (32.4-45.2); HEMOGLOBIN 11.8 GM/dL (10.7-15.3); LYMPH % 46.3 % (8-40); MCH 29.7 pg (25.7-33.7); MCHC 32.4 g/dl (32.0-36.0); MEAN CELL VOLUME 91.6 fl (80-96); MONO % 12.5 % (3.8-10.2); NEUT % 36.4 % (42.8-82.8); PLATELET COUNT 213 K/MM3 (134-434); RBC 3.97 M/mm3 (3.60-5.2); RDW 13.4 % (11.6-15.6); WHITE BLOOD COUNT 3.3 K/mm3 (4.0-10.0)
[2020-05-20 12:22] LABS: CHLORIDE 106 mmol/L (98-107); POTASSIUM 4.4 mmol/L (3.5-5.1); SODIUM 138 mmol/L (136-145)
[2020-05-20 12:24] LABS: ALBUMIN 3.6 g/dl (3.4-5.0); ANION GAP 4 MMOL/L (8-16); BLOOD UREA NITROGEN 11.6 mg/dL (7-18); CALCIUM 9.1 mg/dL (8.5-10.1); CO2 28 mmol/L (21-32); GLUCOSE,RANDOM 99 mg/dL (74-106); MAGNESIUM 2.3 mg/dL (1.8-2.4)
[2020-05-20 12:27] LABS: SGOT/AST 23 U/L (15-37); SGPT/ALT 27 U/L (13-61)
[2020-05-20 12:29] LABS: BILIRUBIN,TOTAL 0.5 mg/dL (0.2-1); TOT PROT 7.7 g/dl (6.4-8.2)
[2020-05-20 12:30] LABS: ALK PHOS 67 U/L (45-117)
[2020-05-20 12:53] VITALS: BP 165/87; PULSE 68; TEMP 98
== END 2020-05-20 12:55 | disposition home or self-care (01) ==
LOC: JER 10:22
DX: S06.0X0A Concussion without loss of consciousness, initial encounter (principal)
CPT/HCPCS: 36415; 70450-TC; 72125-TC; 80053; 82962; 83735; 84484; 85025; 93005; 93010; 99285-25

== ENCOUNTER 2022-09-17 04:13 | Day surgery (SDC) | payer OTHER ==
[2022-09-13 12:40] VITALS: BMI 32.1
[2022-09-17 10:47] VITALS: TEMP 97.5
[2022-09-17 11:18] VITALS: RESP 16
[2022-09-17 11:20] VITALS: BP 153/72; PULSE 66
== END 2022-09-17 11:35 | disposition home or self-care (01) ==
LOC: JASU-ENDO 04:13
PROVIDERS: ATTEND Internal Medicine Gastroenterology
PROC: 0DB78ZX Excision of Stomach, Pylorus, Via Natural or Artificial Opening Endoscopic, Diagnostic (ICD-10-PCS; 2022-09-17)
PROC: 0DB68ZX Excision of Stomach, Via Natural or Artificial Opening Endoscopic, Diagnostic (ICD-10-PCS; 2022-09-17)
PROC: 0DB98ZX Excision of Duodenum, Via Natural or Artificial Opening Endoscopic, Diagnostic (ICD-10-PCS; principal; 2022-09-17 10:00)
DX: K29.50 Unspecified chronic gastritis without bleeding (principal); K44.9 Diaphragmatic hernia without obstruction or gangrene; K29.80 Duodenitis without bleeding; K21.9 Gastro-esophageal reflux disease without esophagitis
CPT/HCPCS: 88305-TC; 88342-TC

== ENCOUNTER 2023-05-31 11:01 | Emergency (ER) | payer OTHER ==
[2023-05-31 11:23] VITALS: RESP 18; BMI 30.6
[2023-05-31 11:30] VITALS: TEMP 98.7
[2023-05-31 12:50] LABS: BASO % 0.6 % (0-2.0); EOS % 2.6 % (0-4.5); HEMATOCRIT 35.3 % (32.4-45.2); HEMOGLOBIN 11.3 GM/dL (10.7-15.3); LYMPH % 30.3 % (8-40); MCH 29.1 pg (25.7-33.7); MCHC 32.2 g/dl (32.0-36.0); MEAN CELL VOLUME 90.5 fl (80-96); MONO % 8.8 % (3.8-10.2); NEUT % 57.7 % (42.8-82.8); PLATELET COUNT 200 10^3/uL (134-434); RDW 13.8 % (11.6-15.6); WHITE BLOOD COUNT 4.4 K/mm3 (4.0-10.0)
[2023-05-31 13:15] LABS: POTASSIUM 4.5 mmol/L (3.5-5.1)
[2023-05-31 13:17] LABS: CALCIUM 9.4 mg/dL (8.5-10.1)
[2023-05-31 13:18] LABS: ALBUMIN 3.6 g/dl (3.4-5.0); BLOOD UREA NITROGEN 18.7 mg/dL (7-18)
[2023-05-31 13:20] LABS: CREATININE 1.4 mg/dL (0.55-1.3)
[2023-05-31 13:22] LABS: BILIRUBIN,TOTAL 0.7 mg/dL (0.2-1); TOT PROT 7.4 g/dl (6.4-8.2)
[2023-05-31] MEDS ORDERED: METOPROLOL TARTRATE 25 MG TABLET (FP) ONE (16:25)
[2023-05-31] MEDS: METOPROLOL TARTRATE 25 MG TABLET (FP) PO SCH (16:31)
[2023-05-31 16:32] VITALS: BP 167/92; PULSE 83
== END 2023-05-31 18:28 | disposition home or self-care (01) ==
LOC: JER 11:01
DX: R07.9 Chest pain, unspecified (principal); R68.84 Jaw pain; R29.898 Other symptoms and signs involving the musculoskeletal system
CPT/HCPCS: 36415; 71045-TC-FY; 80053; 84484; 85025; 93005; 93010; 99284-25